=== PATIENT | male | born 1985 | race Two or more races ===

== ENCOUNTER 2024-12-25 23:46 | Emergency (ER) | payer BC, SELFPAY ==
[2024-12-25 23:56] VITALS: BP 144/91; PULSE 100; RESP 18; TEMP 36.9; O2SAT 99
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
== END 2024-12-26 01:41 ==
PROVIDERS: Emergency Provider Emergency Medicine
DX: Z02.89 Encounter for other administrative examinations (principal); F10.129 Alcohol abuse with intoxication, unspecified; Z04.1 Encounter for examination and observation following transport accident; Z65.3 Problems related to other legal circumstances
CPT/HCPCS: 99281

== ENCOUNTER 2025-05-17 22:39 | Emergency (ER) | payer BC, SELFPAY ==
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
[2025-05-17 23:01] VITALS: BP 140/85; PULSE 119; RESP 18; TEMP 37.1; O2SAT 96
[2025-05-17 23:02] VITALS: BMI 36.6
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
[2025-05-18] VITALS (7 sets, daily range): BP systolic 133–162; BP diastolic 70–92; PULSE 81–92; RESP 16–88; TEMP 36.4–36.9; O2SAT 92–97
[2025-05-18 00:17] LABS: Basophils # (Auto) 0.1 Thou/mm3 (0.0-0.2); Basophils % (Auto) 1 % (0-2.5); Eosinophils # (Auto) 0.1 Thou/mm3 (0.0-0.5); Eosinophils % (Auto) 1 % (0-10); Hematocrit 43.2 % (41.0-53.0); Hemoglobin 14.9 g/dL (13.5-16.0); Immature Granulocytes % (Auto) 1 % (0-0); Immature Granulocytes Auto 0.09 Thou/mm3 (0.00-0.00); Lymphocytes # (Auto) 1.6 Thou/mm3 (1.0-4.8); Lymphocytes % (Auto) 13 % (10-50); Mean Corpuscular HGB Conc 34.5 g/dl (31.0-37.0); Mean Corpuscular Hemoglobin 30.2 pg (25.0-35.0); Mean Corpuscular Volume 87 fL (80-100); Monocytes # (Auto) 0.6 Thou/mm3 (0.0-0.8); Monocytes % (Auto) 5 % (0-12); Neutrophils # (Auto) 10.1 Thou/mm3 (1.8-7.7); Neutrophils % (Auto) 80 % (37-80); Nucleated Red Blood Cell % 0 /100 WBC (0); Platelet Count 290 Thou/mm3 (140-440); RDW Standard Deviation 41.1 fL (35.1-43.9); Red Blood Count 4.94 Miln/mm3 (4.50-5.90); White Blood Count 12.6 Thou/mm3 (3.8-10.6)
[2025-05-18 00:36] LABS: Alanine Aminotransferase 38 U/L (10-49); Albumin, Serum 5.1 gm/dL (3.5-5.0); Alkaline Phosphatase 62 U/L (46-116); Anion Gap 11 (7-16); Aspartate Amino Transferase 41 U/L (0-34); BUN/Creatinine Ratio 8 Ratio (12-20); Bilirubin,Total 0.9 mg/dL (0.3-1.2); Blood Urea Nitrogen 10 mg/dL (9-23); Calcium 9.1 mg/dL (8.3-10.6); Calcium (Corrected) 9.1 mg/dL (8.5-10.1); Carbon Dioxide 22.7 mMol/L (20.0-31.0); Chloride 105 mMol/L (98-107); Creatinine (Component) 1.3 mg/dL (0.6-1.3); Estimated Creatinine Clearance 83.7 mL/min (>60); Globulin 2.5 gm/dL (2.3-3.5); Glucose 104 mg/dL (74-106); Osmolality,Calculated 276 (275-295); Potassium 3.1 mMol/L (3.4-5.1); Sodium 139 mMol/L (136-145); Total Protein 7.6 gm/dL (5.7-8.2); eGFR > 60 See Note
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
--- NOTE | 2025-05-18 04:14 | PC.NURSE ---
[facility] transfer center contacted for possible ENT and ophthalmology transfer, No answer at the moment message left for call back.
--- NOTE | 2025-05-18 04:37 | PC.NURSE ---
[facility] contacted for transfer for ENT and ophthalmology. They stated they do not have ophthalmology on board but do have ENT in [place].
--- NOTE | 2025-05-18 05:14 | PC.NURSE ---
The following facilities were contacted for possible transfer. Requesting Opthomalogy and ENT 0447-[facility] states they do not have ophthalmology. 0500- [facility] doesn't have ophthalmology. 0505- [facility] does have both specialties on board and will forward imaging and packet for review. DR Garza made aware.
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
--- NOTE | 2025-05-18 06:50 | PC.NURSE ---
cps worker into speak with pt
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
--- NOTE | 2025-05-18 09:15 | PC.CC ---
Addendum entered by Nargis Asencio RN 05/18/25 12:23: 1213: Called [facility], spoke to Ashley, transport info provided. Addendum entered by Nargis Asencio RN 05/18/25 11:52: 1149: received call from [facility], pick time has been pushed back to 1300. Bedside nurse Danny made aware of change of picker box operator time. Addendum entered by Nargis Asencio RN 05/18/25 10:50: 1045: Transportation set for 1200pm. bedside nurse aware. 1030: Transfer packet w/ CD created and taken to ED. 1000: received call from Roseanna pt accepted ED to ED by Dr. Saurabh Rosas. Original Note: 0916: Clinicals and imaging sent to [facility]. 0912: Spoke to Dr. Garza to enter order for transfer. 0859: called [facility] to f/u on VM left by ED Charge Nurse Aleena from this morning. Per Roseanna with [facility], she did get the message but no clinicals were sent. Roseanna requested to speak to Dr. Garza. Conference call initiated. Dr. Garza provided all information to Roseanna. Roseanna will review once clinicals and imaging is received. 0850: called [facility], received information for possible transfer. 08:00 pending transfer report given via meeting, will f/u with supervisor plate pasting Lanise for more info
--- NOTE | 2025-05-18 10:24 | EDNOTE_ITS ---
Emergency Room Addendum Addendum Narrative: 0915: Care assumed from Dr. Garza, the previous shift emergency physician. Past medical, surgical, social and family history reviewed. Vitals and home medications reviewed. I will assume the care of the patient at this time, pending transfer. Please refer to the emergency department record for history and examination from initial visit.?The following addendum documentation note is intended to reflect any pending information, findings, or radiology results not included in the patient?s initial chart. 1025: I have been notified by transfer nurse that the patient was accepted by Dr. Saurabh Rosas at [facility]. 1300: EMS here to transfer patient. Patient has remained stable through ED course and was transferred in stable condition.
--- NOTE | 2025-05-18 13:25 | PC.NURSE ---
REPORT GIVEN TO [facility] AT THIS TIME
== END 2025-05-18 13:10 | disposition short-term general hospital (02) ==
PROVIDERS: Emergency Medicine; Emergency Provider Emergency Medicine
DX: Z02.89 Encounter for other administrative examinations (principal); S02.2XXA Fracture of nasal bones, initial encounter for closed fracture; Y04.0XXA Assault by unarmed brawl or fight, initial encounter; H11.30 Conjunctival hemorrhage, unspecified eye; H57.02 Anisocoria
CPT/HCPCS: 36415; 70450; 70481; 70486; 72125; 80053; 85025; 85610; 99285; A4649; Q9967

== ENCOUNTER → 2025-06-12 | Outpatient (CLI) | payer BC, SELFPAY ==
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
== END | disposition home or self-care (01) ==
LOC: CDIM 09:32
PROVIDERS: PCP Family Medicine; Referring Provider Family Medicine; Visit Provider Family Medicine
DX: M16.0 Bilateral primary osteoarthritis of hip (principal); M47.816 Spondylosis without myelopathy or radiculopathy, lumbar region
CPT/HCPCS: 72100; 73502

== ENCOUNTER → 2025-08-18 | Outpatient (CLI) | payer BC, SELFPAY ==
--- NOTE | 2025-08-18 08:25 | XR_ITS ---
Examination: CT lumbar spine, without contrast. 2-D sagittal reconstructions. 2-D coronal reconstructions. 3-D reconstructions. Date and time of exam:August 18, 2025, 0837 hours INDICATIONS: Low back pain beginning 15 years ago, worse today CTDI: vol (mGy):20.4 DLP: (mGycm):833 Technique: Multiple 1.25 mm axial sections of the lumbar spine without intravenous contrast have been obtained. 2-D sagittal and coronal reconstructions have been obtained. 3-D reconstructions have been obtained. Low dose protocols were performed. One or more of the following dose reduction techniques were used; automated exposure control, adjustment of the mA and/or KV according to patient size, use of iterative reconstruction technique. Findings: Satisfactory alignment lumbar vertebral bodies on the lateral view Mild disc narrowing posteriorly L5-S1 No lumbar vertebral body compression fracture. Lumbar pedicles, laminae, transverse and posterior spinous processes are intact L5-S1 2 mm central lumbar disc bulge L4-L5 2 mm central lumbar disc bulge More cephalad levels unremarkable IMPRESSION: Early degenerative disc disease L5-S1 L5-S1, L4-L5 2 mm central lumbar disc bulges
== END | disposition home or self-care (01) ==
PROVIDERS: PCP Family Medicine; Referring Provider Family Medicine; Visit Provider Family Medicine
DX: M51.370 Other intervertebral disc degeneration, lumbosacral region with discogenic back pain only (principal); M51.360 Other intervertebral disc degeneration, lumbar region with discogenic back pain only
CPT/HCPCS: 72131